=== PATIENT | female | born 1970 | race Caucasian/White ===

== ENCOUNTER 2019-08-25 07:10 | Outpatient (CLI) | payer OTHER | END 2019-08-25 23:59 | disposition home or self-care (01) | LOC: CFH 07:10 → EDSTATUS 07:30 → CFH 23:59 | PROVIDERS: ATTEND Family Medicine | DX: D18.09 Hemangioma of other sites (principal); R94.5 Abnormal results of liver function studies; Z90.49 Acquired absence of other specified parts of digestive tract | CPT/HCPCS: 76705 ==

== ENCOUNTER → 2020-02-09 | Outpatient (CLI) | payer OTHER | END | disposition home or self-care (01) | LOC: RAD 15:22 | PROVIDERS: ATTEND Family Medicine | DX: R05 Cough (principal) | CPT/HCPCS: 71046 ==

== ENCOUNTER 2020-05-17 10:12 | Outpatient (CLI) | payer OTHER ==
[2020-05-17] MEDS ORDERED: GADOTERATE 5 MMOL/10 ML VIAL ONE (11:15)
[2020-05-17] MEDS ORDERED: GADOTERATE 7.5 MMOL/15 ML VIAL ONE (15:00)
== END 2020-05-17 23:59 | disposition home or self-care (01) ==
LOC: RAD 10:12
PROVIDERS: ATTEND Family Medicine
DX: R42 Dizziness and giddiness (principal)
CPT/HCPCS: 70553; A9575

== ENCOUNTER → 2020-10-18 | Outpatient (CLI) | payer OTHER ==
[~2020-10-18] MED LIST: GADOTERATE 7.5 MMOL/15 ML VIAL ONE
== END | disposition home or self-care (01) ==
LOC: RAD 09:35
PROVIDERS: ATTEND Nurse Practitioner Family
DX: K76.0 Fatty (change of) liver, not elsewhere classified (principal); K76.89 Other specified diseases of liver; R77.2 Abnormality of alphafetoprotein; R93.2 Abnormal findings on diagnostic imaging of liver and biliary tract; K76.9 Liver disease, unspecified; I77.811 Abdominal aortic ectasia
CPT/HCPCS: 74183; A9575